=== PATIENT | male | born 1975 | race Two or more races ===

== ENCOUNTER 2019-11-04 01:50 | Inpatient (IN) | payer MEDICAID ==
[~2019-11-04] VITALS: Ht 175.3 cm; Wt 106.6 kg
[2019-11-04] MEDS ORDERED: FLUO-191 PO (02:09)
[2019-11-04] MEDS ORDERED: ATOR10TA84 PO (02:09)
[2019-11-04] MEDS ORDERED: NIFE-64 PO (02:09)
[2019-11-04] MEDS ORDERED: METF-960 PO (02:09)
[2019-11-04] MEDS ORDERED: DOXY-354 PO (02:09)
[2019-11-04] MEDS ORDERED: CEFU500T41 PO (02:09)
[2019-11-04] MEDS ORDERED: METO-558 PO (02:09)
[2019-11-04] MEDS ORDERED: GLIP10 PO (02:09)
[2019-11-04 02:15] LABS: GLUCOSE,POINT OF CARE 269 MG/DL (70-110)
[2019-11-04 02:30] LABS: BASOPHILS % (AUTO) 0.8 % (0.0-2.0); EOSINOPHILS % (AUTO) 0.2 % (1.0-6.0); HEMATOCRIT 41.1 % (41-53); HEMOGLOBIN 13.8 g/dL (13.5-17.5); LYMPHOCYTES # (AUTO) 0.6 K/uL (1.0-4.8); MEAN CORPUSCULAR HEMOGLOBIN 26.8 pg (26.0-34.0); MEAN CORPUSCULAR HGB CONC 33.7 G/dL (31.0-37.0); MEAN CORPUSCULAR VOLUME 80 fL (80-100); MONOCYTES # (AUTO) 0.6 K/uL (0.1-1.0); MONOCYTES % (AUTO) 17.3 % (2.0-9.0); NEUTROPHILS # (AUTO) 2.2 K/uL (1.8-7.7); NEUTROPHILS % (AUTO) 63.7 % (40.0-70.0); PLATELET COUNT (AUTO) 470 K/uL (150-450); RED BLOOD CELL COUNT(AUTO) 5.16 MIL/uL (4.50-5.90); RED CELL DISTRIBUTION WIDTH 13.7 % (11.5-14.5)
[2019-11-04] MEDS ORDERED: METOPROLOL SUCCINATE 50 MG ER TABLET PO ONE (02:30)
[2019-11-04 02:36] LABS: ANION GAP 9 mmol/L (8-16); CALCIUM, TOTAL 9.2 mg/dL (8.8-10.5); CARBON DIOXIDE 29 mmol/L (22-29); CHLORIDE 99 mmol/L (98-107); CREATININE 1.16 mg/dL (0.60-1.30); GLOMERULAR FILTR. RATE CALC > 60 mL/min (>60); GLUCOSE,RANDOM 298 mg/dL (70-110); POTASSIUM 3.3 mmol/L (3.5-5.1); SODIUM SERUM 137 mmol/L (136-145); UREA NITROGEN, BLOOD 23 mg/dL (7-18)
[2019-11-04 02:42] LABS: ALANINE AMINOTRANSFERASE 32 U/L (12-78); ALBUMIN 3.5 g/dL (3.4-5.0); ALKALINE PHOSPHATASE 95 U/L (46-116); ASPARTATE AMINOTRANSFERASE 22 U/L (15-37); BILIRUBIN,TOTAL 0.5 mg/dL (0.1-1.0); TOTAL PROTEIN, SERUM 8.1 g/dL (6.4-8.2)
[2019-11-04] MEDS ORDERED: LORazepam 2 MG TABLET PO PRN (04:00)
[2019-11-04] MEDS ORDERED: HALOPERIDOL 5 MG TABLET PO PRN (04:00)
[2019-11-04 04:13] LABS: GLUCOSE,POINT OF CARE 277 MG/DL (70-110)
[2019-11-04 05:25] VITALS: BP 158/112
[2019-11-04 06:25] VITALS: BP 157/95
[2019-11-04 09:18] VITALS: BP 149/86
[2019-11-04] MEDS ORDERED: MAGNESIUM HYDROXIDE SUSPENSION 30 ML UDCUP PO PRN (11:00)
[2019-11-04] MEDS ORDERED: ALBUTEROL SULFATE HFA 90 MCG/PUFF 8 GM INHALER IH PRN (11:00)
[2019-11-04] MEDS ORDERED: MAG HYDROX/AL HYDROX/SIMETH ES 30 ML SUSPENSION UDCUP PO PRN (11:00)
[2019-11-04] MEDS ORDERED: OMEPRAZOLE 20 MG CAPSULE PO PRN (11:00)
[2019-11-04] MEDS ORDERED: ACETAMINOPHEN 325 MG TABLET PO PRN (11:00)
[2019-11-04] MEDS ORDERED: PETROLATUM,WHITE 28 GM JELLY TP PRN (11:00)
[2019-11-04] MEDS ORDERED: CloNIDine HCL 0.1 MG TABLET PO PRN (11:00)
[2019-11-04] MEDS ORDERED: DEXTROSE 50%-WATER 25 GM/50 ML SYRINGE IVP PRN (11:00)
[2019-11-04] MEDS ORDERED: LOPERAMIDE HCL 2 MG CAPSULE PO PRN (11:00)
[2019-11-04] MEDS ORDERED: BENZOCAINE/MENTHOL LOZENGE MM PRN (11:00)
[2019-11-04] MEDS ORDERED: DOCUSATE SODIUM 100 MG CAPSULE PO PRN (11:00)
[2019-11-04] MEDS ORDERED: BACITRACIN 28.4 GM OINTMENT TP PRN (11:00)
[2019-11-04] MEDS ORDERED: ONDANSETRON HCL 4 MG TABLET PO PRN (11:00)
[2019-11-04] MEDS: INSULIN LISPRO 100 UNITS/ML SQ PRN ×2 (11:51→17:18)
[2019-11-04 11:58] LABS: GLUCOMETER DEV NAME(LOC) 3E.I 2; GLUCOSE,POINT OF CARE 251 MG/DL (70-110)
[2019-11-04] MEDS: NIFEdipine 30 MG ER TABLET PO SCH (12:17)
[2019-11-04] MEDS: METOPROLOL SUCCINATE 50 MG ER TABLET PO SCH (16:14)
[2019-11-04] MEDS: GlipiZIDE 10 MG TABLET PO SCH (16:52)
[2019-11-04] MEDS: MetFORMIN HCL 500 MG TABLET PO SCH (16:52)
[2019-11-04 17:24] LABS: GLUCOMETER DEV NAME(LOC) 3E.I 2; GLUCOSE,POINT OF CARE 197 MG/DL (70-110)
[2019-11-04 18:13] VITALS: BP 142/3
[2019-11-04 21:28] LABS: GLUCOMETER DEV NAME(LOC) 3E.I 2; GLUCOSE,POINT OF CARE 89 MG/DL (70-110)
[2019-11-05 02:38] VITALS: BP 116/74
[2019-11-05 06:05] LABS: GLUCOMETER DEV NAME(LOC) 3E.I 2; GLUCOSE,POINT OF CARE 171 MG/DL (70-110)
[2019-11-05] MEDS: GlipiZIDE 10 MG TABLET PO SCH ×2 (07:03→17:04)
[2019-11-05] MEDS: MetFORMIN HCL 500 MG TABLET PO SCH ×2 (07:03→17:03)
[2019-11-05] MEDS: INSULIN LISPRO 100 UNITS/ML SQ PRN ×2 (07:05→17:18)
[2019-11-05 08:54] VITALS: BP 118/82
[2019-11-05] MEDS: NIFEdipine 30 MG ER TABLET PO SCH (09:07)
[2019-11-05] MEDS: METOPROLOL SUCCINATE 50 MG ER TABLET PO SCH (09:07)
[2019-11-05] MEDS: FLUoxetine HCL 20 MG CAPSULE PO SCH (09:07)
[2019-11-05] MEDS: ATORVASTATIN CALCIUM 10 MG TABLET PO SCH (09:07)
[2019-11-05] MEDS: DIVALPROEX SODIUM 500 MG DR TABLET PO SCH ×2 (09:08→17:03)
[2019-11-05 11:39] LABS: GLUCOMETER DEV NAME(LOC) 3E.I 2; GLUCOSE,POINT OF CARE 130 MG/DL (70-110)
[2019-11-05 17:13] VITALS: BP 135/79
[2019-11-05 17:56] LABS: GLUCOMETER DEV NAME(LOC) 3E.I 2; GLUCOSE,POINT OF CARE 186 MG/DL (70-110)
[2019-11-05] MEDS: OLANZapine 10 MG TABLET PO SCH (20:19)
[2019-11-05 21:01] LABS: GLUCOMETER DEV NAME(LOC) 3E.I 2; GLUCOSE,POINT OF CARE 131 MG/DL (70-110)
[2019-11-06 05:35] LABS: GLUCOMETER DEV NAME(LOC) 3E.I 2; GLUCOSE,POINT OF CARE 84 MG/DL (70-110)
[2019-11-06] MEDS: GlipiZIDE 10 MG TABLET PO SCH ×2 (06:36→16:21)
[2019-11-06] MEDS: MetFORMIN HCL 500 MG TABLET PO SCH ×2 (06:36→16:36)
[2019-11-06] MEDS: METOPROLOL SUCCINATE 50 MG ER TABLET PO SCH (09:01)
[2019-11-06] MEDS: FLUoxetine HCL 20 MG CAPSULE PO SCH (09:01)
[2019-11-06] MEDS: ATORVASTATIN CALCIUM 10 MG TABLET PO SCH (09:01)
[2019-11-06] MEDS: DIVALPROEX SODIUM 500 MG DR TABLET PO SCH ×2 (09:01→16:21)
[2019-11-06] MEDS: MULTIVITAMINS WITH MINERALS, THERAPEUTIC TABLET PO SCH (09:01)
[2019-11-06] MEDS: NIFEdipine 30 MG ER TABLET PO SCH (09:02)
[2019-11-06 10:53] VITALS: BP 126/70
[2019-11-06 11:33] LABS: GLUCOMETER DEV NAME(LOC) 3E.I 2; GLUCOSE,POINT OF CARE 131 MG/DL (70-110)
[2019-11-06 16:25] VITALS: BP 115/76
[2019-11-06 17:50] LABS: GLUCOMETER DEV NAME(LOC) 3E.I 2; GLUCOSE,POINT OF CARE 97 MG/DL (70-110)
[2019-11-06] MEDS: OLANZapine 10 MG TABLET PO SCH (20:36)
[2019-11-06] MEDS: INSULIN LISPRO 100 UNITS/ML SQ PRN (21:35)
[2019-11-06 21:47] LABS: GLUCOMETER DEV NAME(LOC) 3E.I 2; GLUCOSE,POINT OF CARE 156 MG/DL (70-110)
[2019-11-07 05:41] LABS: GLUCOMETER DEV NAME(LOC) 3E.I 2; GLUCOSE,POINT OF CARE 97 MG/DL (70-110)
[2019-11-07] MEDS: GlipiZIDE 10 MG TABLET PO SCH ×2 (06:37→17:19)
[2019-11-07] MEDS: MetFORMIN HCL 500 MG TABLET PO SCH ×2 (06:37→17:19)
[2019-11-07 09:27] VITALS: BP 144/98
[2019-11-07] MEDS: ATORVASTATIN CALCIUM 10 MG TABLET PO SCH (09:34)
[2019-11-07] MEDS: FLUoxetine HCL 20 MG CAPSULE PO SCH (09:34)
[2019-11-07] MEDS: MULTIVITAMINS WITH MINERALS, THERAPEUTIC TABLET PO SCH (09:34)
[2019-11-07] MEDS: DIVALPROEX SODIUM 500 MG DR TABLET PO SCH ×2 (09:34→11:30)
[2019-11-07] MEDS: NIFEdipine 30 MG ER TABLET PO SCH (09:35)
[2019-11-07] MEDS: METOPROLOL SUCCINATE 50 MG ER TABLET PO SCH (09:35)
[2019-11-07 10:32] LABS: GLUCOMETER DEV NAME(LOC) 3E.I 2; GLUCOSE,POINT OF CARE 162 MG/DL (70-110)
[2019-11-07] MEDS: INSULIN LISPRO 100 UNITS/ML SQ PRN ×3 (11:30→21:11)
[2019-11-07 16:42] LABS: GLUCOMETER DEV NAME(LOC) 3E.I 2; GLUCOSE,POINT OF CARE 132 MG/DL (70-110)
[2019-11-07 17:05] VITALS: BP 100/67
[2019-11-07] MEDS: OLANZapine 10 MG TABLET PO SCH (20:13)
[2019-11-07 20:24] LABS: GLUCOMETER DEV NAME(LOC) 3E.I 2; GLUCOSE,POINT OF CARE 124 MG/DL (70-110)
[2019-11-08 05:42] LABS: GLUCOMETER DEV NAME(LOC) 3E.I 2; GLUCOSE,POINT OF CARE 115 MG/DL (70-110)
[2019-11-08] MEDS: MetFORMIN HCL 500 MG TABLET PO SCH ×2 (06:44→17:24)
[2019-11-08] MEDS: INSULIN LISPRO 100 UNITS/ML SQ PRN ×2 (06:44→11:38)
[2019-11-08] MEDS: GlipiZIDE 10 MG TABLET PO SCH ×2 (06:44→17:24)
[2019-11-08 08:51] VITALS: BP 118/81
[2019-11-08] MEDS: ATORVASTATIN CALCIUM 10 MG TABLET PO SCH (09:29)
[2019-11-08] MEDS: DIVALPROEX SODIUM 500 MG DR TABLET PO SCH ×2 (09:29→17:23)
[2019-11-08] MEDS: METOPROLOL SUCCINATE 50 MG ER TABLET PO SCH (09:29)
[2019-11-08] MEDS: NIFEdipine 30 MG ER TABLET PO SCH (09:30)
[2019-11-08] MEDS: MULTIVITAMINS WITH MINERALS, THERAPEUTIC TABLET PO SCH (09:30)
[2019-11-08] MEDS: FLUoxetine HCL 20 MG CAPSULE PO SCH (09:30)
[2019-11-08 11:20] LABS: GLUCOMETER DEV NAME(LOC) 3E.I 2; GLUCOSE,POINT OF CARE 130 MG/DL (70-110)
[2019-11-08 18:38] VITALS: BP 123/82
[2019-11-08] MEDS: OLANZapine 10 MG TABLET PO SCH (20:31)
[2019-11-09 00:01] VITALS: BP 128/83
[2019-11-09] MEDS: IBUPROFEN 600 MG TABLET PO PRN (00:01)
[2019-11-09] MEDS: ZOLPIDEM TARTRATE 10 MG TABLET PO PRN (00:02)
[2019-11-09 06:12] LABS: GLUCOMETER DEV NAME(LOC) 3E.I 2; GLUCOSE,POINT OF CARE 86 MG/DL (70-110)
[2019-11-09] MEDS: MetFORMIN HCL 500 MG TABLET PO SCH ×2 (06:47→16:51)
[2019-11-09] MEDS: GlipiZIDE 10 MG TABLET PO SCH ×2 (06:47→16:51)
[2019-11-09] MEDS: INSULIN LISPRO 100 UNITS/ML SQ PRN ×2 (06:47→11:42)
[2019-11-09 08:00] VITALS: BP 137/95
[2019-11-09] MEDS: DIVALPROEX SODIUM 500 MG DR TABLET PO SCH ×2 (09:07→16:51)
[2019-11-09] MEDS: MULTIVITAMINS WITH MINERALS, THERAPEUTIC TABLET PO SCH (09:07)
[2019-11-09] MEDS: ASPIRIN 81 MG EC TABLET PO SCH (09:07)
[2019-11-09] MEDS: FLUoxetine HCL 20 MG CAPSULE PO SCH (09:07)
[2019-11-09] MEDS: ATORVASTATIN CALCIUM 10 MG TABLET PO SCH (09:07)
[2019-11-09] MEDS: METOPROLOL SUCCINATE 50 MG ER TABLET PO SCH (09:08)
[2019-11-09] MEDS: NIFEdipine 30 MG ER TABLET PO SCH (09:08)
[2019-11-09 11:22] LABS: GLUCOMETER DEV NAME(LOC) 3E.I 2; GLUCOSE,POINT OF CARE 90 MG/DL (70-110)
[2019-11-09 16:40] VITALS: BP 111/68
[2019-11-09 17:29] LABS: GLUCOMETER DEV NAME(LOC) 3E.I 2; GLUCOSE,POINT OF CARE 113 MG/DL (70-110)
[2019-11-09] MEDS: OLANZapine 10 MG TABLET PO SCH (21:02)
[2019-11-09 21:20] LABS: GLUCOMETER DEV NAME(LOC) 3E.I 2; GLUCOSE,POINT OF CARE 82 MG/DL (70-110)
[2019-11-09 23:40] VITALS: BP 108/71
[2019-11-10 05:36] LABS: GLUCOMETER DEV NAME(LOC) 3E.I 2; GLUCOSE,POINT OF CARE 92 MG/DL (70-110)
[2019-11-10] MEDS: MetFORMIN HCL 500 MG TABLET PO SCH ×2 (06:47→17:30)
[2019-11-10] MEDS: GlipiZIDE 10 MG TABLET PO SCH ×2 (06:47→17:30)
[2019-11-10 08:00] VITALS: BP 131/78
[2019-11-10] MEDS: NIFEdipine 30 MG ER TABLET PO SCH (08:56)
[2019-11-10] MEDS: MULTIVITAMINS WITH MINERALS, THERAPEUTIC TABLET PO SCH (08:56)
[2019-11-10] MEDS: METOPROLOL SUCCINATE 50 MG ER TABLET PO SCH (08:56)
[2019-11-10] MEDS: ASPIRIN 81 MG EC TABLET PO SCH (08:56)
[2019-11-10] MEDS: FLUoxetine HCL 20 MG CAPSULE PO SCH (08:57)
[2019-11-10] MEDS: DIVALPROEX SODIUM 500 MG DR TABLET PO SCH ×2 (08:57→16:57)
[2019-11-10] MEDS: ATORVASTATIN CALCIUM 10 MG TABLET PO SCH (08:57)
[2019-11-10 11:01] LABS: GLUCOMETER DEV NAME(LOC) 3E.I 2; GLUCOSE,POINT OF CARE 77 MG/DL (70-110)
[2019-11-10] MEDS: INSULIN LISPRO 100 UNITS/ML SQ PRN (12:02)
[2019-11-10 18:10] LABS: GLUCOMETER DEV NAME(LOC) 3E.I 2; GLUCOSE,POINT OF CARE 108 MG/DL (70-110)
[2019-11-10 19:17] VITALS: BP 106/65
[2019-11-10] MEDS: OLANZapine 10 MG TABLET PO SCH (20:38)
[2019-11-10 21:00] VITALS: BP 124/70
[2019-11-10] MEDS: ZOLPIDEM TARTRATE 10 MG TABLET PO PRN (21:03)
[2019-11-10] MEDS: IBUPROFEN 600 MG TABLET PO PRN (21:03)
[2019-11-10 21:29] LABS: GLUCOMETER DEV NAME(LOC) 3E.I 2; GLUCOSE,POINT OF CARE 98 MG/DL (70-110)
[2019-11-11 05:42] LABS: GLUCOMETER DEV NAME(LOC) 3E.I 2; GLUCOSE,POINT OF CARE 65 MG/DL (70-110)
[2019-11-11 06:11] LABS: GLUCOMETER DEV NAME(LOC) 3E.I 2; GLUCOSE,POINT OF CARE 107 MG/DL (70-110)
[2019-11-11] MEDS: MetFORMIN HCL 500 MG TABLET PO SCH (06:35)
[2019-11-11] MEDS: GlipiZIDE 10 MG TABLET PO SCH (06:35)
[2019-11-11] MEDS: MULTIVITAMINS WITH MINERALS, THERAPEUTIC TABLET PO SCH (08:34)
[2019-11-11] MEDS: DIVALPROEX SODIUM 500 MG DR TABLET PO SCH (08:35)
[2019-11-11] MEDS: ASPIRIN 81 MG EC TABLET PO SCH (08:35)
[2019-11-11] MEDS: FLUoxetine HCL 20 MG CAPSULE PO SCH (08:35)
[2019-11-11] MEDS: METOPROLOL SUCCINATE 50 MG ER TABLET PO SCH (08:35)
[2019-11-11] MEDS: NIFEdipine 30 MG ER TABLET PO SCH (08:36)
[2019-11-11] MEDS: ATORVASTATIN CALCIUM 10 MG TABLET PO SCH (08:36)
[2019-11-11 08:49] VITALS: BP 135/82
[2019-11-11 11:03] LABS: GLUCOMETER DEV NAME(LOC) 3E.I 2; GLUCOSE,POINT OF CARE 121 MG/DL (70-110)
[2019-11-11] MEDS: INSULIN LISPRO 100 UNITS/ML SQ PRN (11:38)
[2019-11-11] MEDS ORDERED: OLAN10TA3 PO (12:10)
[2019-11-11] MEDS ORDERED: DIVA-78 PO (12:10)
[2019-11-11] MEDS ORDERED: METO100XL PO (12:24)
[2019-11-11] MEDS ORDERED: ASPI-1111 PO ×2 (12:24→15:46)
[2019-11-11] MEDS ORDERED: NIFE-40 PO (12:24)
[2019-11-11] MEDS ORDERED: MULT-1239 PO (12:25)
[2019-11-11] MEDS ORDERED: ATOR10TA84 PO (15:47)
== END 2019-11-11 16:00 | disposition home or self-care (01) | DRG 885 ==
LOC: EMS 01:50 → 3EI 05:00
PROVIDERS: ADMIT Psychiatry & Neurology Psychiatry; ATTEND Psychiatry & Neurology Psychiatry
DX: F25.9 Schizoaffective disorder, unspecified (principal); E11.65 Type 2 diabetes mellitus with hyperglycemia; E78.5 Hyperlipidemia, unspecified; I10 Essential (primary) hypertension; Z79.899 Other long term (current) drug therapy; F17.200 Nicotine dependence, unspecified, uncomplicated; Z89.429 Acquired absence of other toe(s), unspecified side; Z91.19 Patient's noncompliance with other medical treatment and regimen; E66.9 Obesity, unspecified; F10.10 Alcohol abuse, uncomplicated; Y90.9 Presence of alcohol in blood, level not specified; F12.90 Cannabis use, unspecified, uncomplicated; F15.90 Other stimulant use, unspecified, uncomplicated; F32.9 Major depressive disorder, single episode, unspecified; Z91.5 Personal history of self-harm; F19.10 Other psychoactive substance abuse, uncomplicated; F17.210 Nicotine dependence, cigarettes, uncomplicated
CPT/HCPCS: 87081; G0480; Q0162

== ENCOUNTER 2019-11-17 02:34 | Emergency (ER) | payer MEDICAID ==
[~2019-11-17] VITALS: Ht 170.2 cm; Wt 109.1 kg
[~2019-11-17 02:34] MED LIST: ASPI-1111 PO; ATOR10TA84 PO; DIVA-78 PO; FLUO-191 PO; GLIP10 PO; METF-960 PO; METO100XL PO; MULT-1239 PO; NIFE-40 PO; OLAN10TA3 PO
[2019-11-17 03:03] VITALS: BP 195/98
[2019-11-17 03:46] LABS: BASOPHILS % (AUTO) 0.8 % (0.0-2.0); EOSINOPHILS % (AUTO) 0.8 % (1.0-6.0); HEMATOCRIT 42.6 % (41-53); HEMOGLOBIN 13.9 g/dL (13.5-17.5); MEAN CORPUSCULAR HEMOGLOBIN 26.3 pg (26.0-34.0); MEAN CORPUSCULAR HGB CONC 32.7 G/dL (31.0-37.0); MEAN CORPUSCULAR VOLUME 81 fL (80-100); MONOCYTES # (AUTO) 0.9 K/uL (0.1-1.0); MONOCYTES % (AUTO) 21.3 % (2.0-9.0); NEUTROPHILS # (AUTO) 2.2 K/uL (1.8-7.7); NEUTROPHILS % (AUTO) 53.1 % (40.0-70.0); PLATELET COUNT (AUTO) 406 K/uL (150-450); RED CELL DISTRIBUTION WIDTH 14.2 % (11.5-14.5)
[2019-11-17 03:50] LABS: ANION GAP 7 mmol/L (8-16); CALCIUM, TOTAL 9.1 mg/dL (8.8-10.5); CARBON DIOXIDE 29 mmol/L (22-29); CHLORIDE 105 mmol/L (98-107); CREATININE 1.24 mg/dL (0.60-1.30); GLOMERULAR FILTR. RATE CALC > 60 mL/min (>60); GLUCOSE,RANDOM 224 mg/dL (70-110); POTASSIUM 4.5 mmol/L (3.5-5.1); SODIUM SERUM 141 mmol/L (136-145); UREA NITROGEN, BLOOD 33 mg/dL (7-18)
[2019-11-17 03:56] LABS: ALANINE AMINOTRANSFERASE 39 U/L (12-78); ALBUMIN 3.9 g/dL (3.4-5.0); ALKALINE PHOSPHATASE 104 U/L (46-116); ASPARTATE AMINOTRANSFERASE 28 U/L (15-37); BILIRUBIN,TOTAL 0.5 mg/dL (0.1-1.0); TOTAL PROTEIN, SERUM 8.6 g/dL (6.4-8.2)
== END 2019-11-17 04:30 | disposition left against medical advice (07) ==
LOC: EMS 02:34
DX: Z04.6 Encounter for general psychiatric examination, requested by authority (principal); Z53.21 Procedure and treatment not carried out due to patient leaving prior to being seen by health care provider
CPT/HCPCS: 80053; 85025; G0480